=== PATIENT | male | born 1995 | race Hispanic/Latino ===

== ENCOUNTER 2021-12-03 10:02 | Emergency (ER) | payer OTHER, SELFPAY ==
--- NOTE | ~2021-12-03 | XR_ITS ---
EXAMINATION: XR lumbar spine 2-3V DATE: 12/03/2021 10:57 INDICATION: A few months of low back pain. TECHNIQUE: Anteroposterior and lateral views of the lumbar spine, and cone-down lateral view of the l umbosacral junction were obtained. COMPARISON: None. FINDINGS: Alignment is normal. Vertebral body and disc heights are normal. There is linear lucency projecting o ry the L5 pars interarticularis on the lateral projection and at least on the right side on the AP p rojection consistent with likely right-sided and possibly bilateral pars interarticularis defects. S acrum and bilateral sacral iliac joints are normal. IMPRESSION: 1. Likely L5 pars interarticularis defect/defects without spondylolisthesis. Reviewed, dictated and finalized at location A. PHONE ORDER CLERK ROOM SERVICE
[2021-12-03 10:17] VITALS: BP 122/76; PULSE 79; RESP 16; TEMP 36.6; O2SAT 100
--- NOTE | 2021-12-03 10:17 | ED.BACK ---
HPI - Back Pain/Injury General Chief Complaint: Back Pain/Injury Stated Complaint: back and hip pain Time Seen by Provider: 12/03/21 10:15 Source: patient, family, RN notes reviewed and old records reviewed Mode of arrival: ambulatory Limitations: no limitations History of Present Illness HPI Narrative: 26-year-old male who presents to [facility] with complaints of lower back and right anterior hip pain which radiates into medial aspect of upper leg down to knee. Patient states that he was playing football with his squad in August and overstepped and felt a pop to anterior aspect of his right hip with sharp stabbing pain down into his medial upper leg to knee, reports that he was diagnosed with muscle tear of hip flexor. Those sharp stabbing symptoms have decreased but he has constant aching rates at 4-5/10. He had a MRI with injection scheduled but had to cancel due to erica COVID.Patient states that he attended some physical therapy but it seems to make it worse. He also complains of pain to his lumbar back along spinal column which he states has been there for awhile. He reports that he has to wear heavy bullet proof vest which has a lot of gear attached that aggravates his discomfort after wearing for a full shift. He states that he frequently has difficulty sleeping at night due to his discomfort and is in discomfort during the day also. Patient denies any radiation of pain down into buttocks or down posterior legs with no tingling or numbness to his legs. MD elicited complaint: back pain and other (Hip pain) Related Data Allergies Allergy/AdvReac Type Severity Reaction Status Date / Time No Known Allergies Allergy Verified 12/03/21 10:29 Review of Systems Review of Systems: CONSTITUTIONAL: Denies fever, chills, or sweats. EYES: Denies visual changes, redness, or discharge. ENT: Denies rhinorrhea, congestion, sore throat, or otalgia. CARDIOVASCULAR: Denies chest pain, palpitations, or edema. RESPIRATORY: Denies cough or dyspnea. GASTROINTESTINAL: Denies abdominal pain, nausea, vomiting, or diarrhea. GENITOURINARY: Denies dysuria or hematuria. SKIN: Denies rash or itching. MUSCULOSKELETAL: positive for lumbar back pain, right anterior hip pain, or myalgia. NEUROLOGIC: Denies headache, numbness, or weakness. PSYCHIATRIC: Denies anxiety or depression. All systems reviewed & are unremarkable except as noted in HPI and below PMFSH Past Medical History Medical History (Updated 12/03/21 @ 11:43 by Cris Oscar NP) COVID-20 November 2021 Surgical History Surgical History (Updated 12/03/21 @ 22:19 by Cris Oscar NP) No history of previous surgery Social History Social History (Updated 12/03/21 @ 10:54 by Cris Oscar NP) Smoking status: Never smoker Alcohol intake: current Alcohol use details: rare Substance use: never Living arrangements: with family Additional occupation/education comments: active Gender identity (if verbalized by the patient): Male Comments At time of signature, agree with nursing past medical, surgical, social and family history. There is no relevant family history pertinent to the presenting complaint Exam Narrative: GENERAL: Well-appearing, well-nourished, and in no acute distress. HEAD: Normocephalic, atraumatic. EYES: PERRLA and EOMI. ENT: Nares clear, no rhinorrhea or epistaxis. Mucous membranes moist.TM's normal with good light reflex, throat pink with no lesions or exudates or tonsil enlargement. NECK: Supple.no lymphadenopathy CHEST: Clear to auscultation. No respiratory distress.SAO2 100% on room air HEART: Regular rate and rhythm. No murmur heard. Normal peripheral pulses. ABDOMEN: Soft, nontender, nondistended, normal active bowel sounds. EXTREMITIES: Normal range of motion. No edema. Full ROM of right hip with pain aggravated with abduction of hip with pain noted to anterior hip region radiating to medial aspect of right upper thigh down to
== END 2021-12-03 11:52 | disposition home or self-care (01) ==
PROVIDERS: Emergency Provider Registered Nurse
DX: M54.50 Low back pain, unspecified (principal); M25.551 Pain in right hip; Z87.891 Personal history of nicotine dependence
CPT/HCPCS: 72100; 99203; G0463